=== PATIENT | female | born 1995 | race Caucasian/White ===

== ENCOUNTER 2017-11-21 13:26 | Emergency (ER) | payer OTHER ==
[~2017-11-21] VITALS: Ht 160 cm; Wt 64.9 kg
[2017-11-21 13:35] VITALS: TEMP 36.8; Ht 160 cm; Wt 64.9 kg
[2017-11-21] MEDS ORDERED: TRMCR515 TOP (13:57)
--- NOTE | 2017-11-21 13:58 | EMERGENCY ROOM VISIT NOTE ---
History First contact with patient: 13:41 Chief Complaint: ALLERGIC REACTION Stated Complaint: ALLERGIC REACTION TO OLD NECKLACE, Nursing Triage Summary: Pt wore a necklace yesterday that caused a localized rash around her neck. C/o itching and painful, "is driving me crazy". Wondering if she can get an RX to help with the itching. History of Present Illness The patient is a 22 year old female who presents to the Emergency Room with complaints of an itchy rash on the back of her neck that started yesterday. The patient reports having an allergy to nickel. She wore a necklace yesterday , which she attributes to her symptoms. She denies any other symptoms such as shortness of breath, difficulty swallowing or dizziness. She has tried over-the -counter Benadryl spray with minimal relief. Of note, the patient is 9 weeks Review of Systems 6 system review negative. Please see pertinent positives in the history of present illness section. Past Medical/Surgical History Otherwise healthy Social History Smoking Status: Never Smoker Current/Historical Medications Scheduled Triamcinolone Acet (Triamcinolone Acetonide), 1 APPLN TOP BID Physical Exam Vital Signs Date Time Temp Pulse Resp B/P (MAP) Pulse Ox O2 Delivery O2 Flow Rate FiO2 11/21/17 13:35 36.8 63 18 106/67 95 Room Air 11/21/17 13:35 95 Physical Exam VITALS: Vitals are noted on the nurse's note and reviewed by myself. Vital signs stable. GENERAL: 22-year-old female, in no acute distress, nondiaphoretic, well- developed well-nourished. SKIN: There is an erythematous, blanching rash noted to the nape of the neck. There are small, raised, circular papules in the center of the rash HEAD: Normocephalic, atraumatic EYES: Conjunctivae without injection, sclerae without icterus. Extraocular movements intact. MOUTH: Mucous membranes moist. Tonsils are not enlarged. Pharynx without erythema or exudate. Uvula midline. Airway patent. Tongue does not deviate. No swelling of the oropharynx NECK: Supple without nuchal rigidity. No lymphadenopathy. Cervical spine is nontender. No JVD. Rashes noted above HEART: Regular rate and rhythm without murmurs gallops or rubs. LUNGS: Clear to auscultation bilaterally without wheezes, rales or rhonchi. No accessory muscle use. MUSCULOSKELETAL Strength 5/5 throughout. NEURO: Patient was alert and oriented to person place and time. Normal sensation to touch. No focal neurological deficits. Medical Decision & Procedures ED Course The patient was seen and examined She was given triamcinolone cream Discharge instructions were reviewed, and she was discharged in good condition Medical Decision Differential diagnosis: Allergic dermatitis, eczema, viral exanthem, bacterial infection, fungal infection This patient is a 22-year-old female that presents to the emergency department complaining of an itchy rash on the back of her neck since yesterday. The patient has a known allergy to nickel and wore a necklace yesterday. On exam, she has dermatitis on the back of her neck, likely associated with the exposure to nickel. The patient was given a prescription for triamcinolone cream. She was instructed to only use a short course as she is 9 weeks . This was discussed with the pharmacist. She voiced understanding, was discharged in good condition This chart was completed in part utilizing [employer] Speech Voice Recognition software. Attempts were made to minimize the grammatical errors, random word insertions, pronoun errors and incomplete sentences. Any formal questions or concerns about the content, text or information contained within the body of this dictation should be directly addressed to the provider for clarification. Impression Primary Impression: Allergic reaction Departure Information Dispostion Home / Self-Care Prescriptions Triamcinolone Acet (Triamcinolone Acetonide) 45 Appln/15 Gm Cr 1 APPLN TOP BID, #30 GM Prov: Sil Starkey PA-C 11/21/17 Referrals No Doctor, Assigned (PCP) Patient Instructions [facility] Additional Instructions You were seen in the emergency department for an allergic reaction. Please use triamcinolone cream to the area twice daily as needed for itching. Please do not use this product for more than 5 days given You may also continue to use topical Benadryl as needed Please follow-up with your primary care physician within the next few days for a recheck Please do not hesitate to return to the emergency department with any new, worsening or concerning symptoms; especially, Difficulty breathing, difficulty swallowing, swelling of the face, lips or tongue It was a pleasure participating in your care today
[2017-11-21 14:21] VITALS: BP 115/71; PULSE 78; O2SAT 98
== END 2017-11-21 14:22 | disposition home or self-care (01) ==
LOC: C.EDB 13:28 → C.EDD 14:22
DX: T78.40XA Allergy, unspecified, initial encounter (principal); X58.XXXA Exposure to other specified factors, initial encounter